=== PATIENT | female | born 1990 | race Caucasian/White ===

== ENCOUNTER → 2018-08-14 22:39 | Emergency (ER) | payer SELFPAY ==
[~2018-08-14 22:39] MED LIST: Iohexol 300* (CONTRAST) 10 ML SDV IV ONE; Ketorolac INJ* 30 MG/ML 1 ML VIAL IV PUSH ONE; Morphine INJ* 4 MG/ML 1 ML SYRINGE (NEW SYRINGE VERSION) IV ONE; Morphine INJ* 4 MG/ML 1 ML SYRINGE (NEW SYRINGE VERSION) ONE; Morphine VIAL* 10 MG/ML 1 ML VIAL IV ONE; NS 0.9% 1000 ML* 1,000 ML IV ONE; Ondansetron INJ* 2 MG/ML VIAL IV ONE
[2018-08-14 23:30] LABS: ABS Basophils 0.1 10^3/ul (0-0.2); ABS Eosinophils 0.1 10^3/ul (0-0.6); ABS Monocytes 0.8 10^3/ul (0-0.8); ABS Neutrophils 4.5 10^3/ul (1.5-7.7); ABS Nucleated RBC 0 10^3/ul; Eosinophil % 1.6 % (0-6); Hematocrit 40 % (35-47); Hemoglobin 14.1 g/dl (12.0-16.0); Mean Corpuscular HGB Conc 35 g/dl (31-36); Mean Corpuscular Hemoglobin 31 pg (27-31); Mean Corpuscular Volume 89 fL (80-97); Mean Platelet Volume 9.1 um3 (7.4-10.4); Nucleated Red Blood Cells % 0.1; Platelet Count 229 10^3/ul (150-450); Red Blood Count 4.54 10^6/ul (4.00-5.40); Red Cell Distribution Width 13 % (10.5-15); White Blood Count 8.5 10^3/ul (3.5-10.8)
[2018-08-14 23:49] LABS: EGFR Non-African American 110.5 (>60)
--- NOTE | 2018-08-14 23:53 | ED ---
Abdominal Pain/Female - HPI Summary HPI Summary: Complains of sudden onset bilateral upper abdominal pain now radiating to lower abdominal pain starting this morning. Abdominal pain described as intermittent , sharp and crampy, progressive over the day, worse after eating, at worst 10/ 10. Also complains of frequent urination, nausea, headache, subjective fever. Denies history of same pain. LMP 2 weeks ago, no control, sexually active. Denies cough, sore throat, CP, SOB, V/D, change in BM, vaginal symptoms. Medical history is Lyme disease. Abdominal/pelvic surgical history is none. - History of Current Complaint Chief Complaint: EDAbdPain Stated Complaint: LOWER ABD PAIN Time Seen by Provider: 08/14/18 23:07 Hx Obtained From: Patient Onset/Duration: Sudden Onset, Lasting Hours Timing: Intermittent Episode Lasting Severity Initially: Moderate Severity Currently: Moderate Pain Intensity: 6 Pain Scale Used: 0-10 Numeric Location: Epigastric, Suprapubic, Umbilical Radiates: No Character: Sharp, Cramping Aggravating Factor(s): Food, Movement Alleviating Factor(s): Position Associated Signs and Symptoms: Positive: Fever, Urinary Symptoms, Decreased Appetite, Nausea Allergies/Adverse Reactions: Allergies Allergy/AdvReac Type Severity Reaction Status Date / Time Sulfa (Sulfonamide Allergy Unknown Verified 08/14/18 22:47 Antibiotics) Reaction Details PMH/Surg Hx/FS Hx/Imm Hx Endocrine/Hematology History: Denies: Hx Anticoagulant Therapy Cardiovascular History: Denies: Hx Cardiac Arrest History: Denies: Hx Dialysis Neurological History: Denies: Hx CVA Infectious Disease History: No Infectious Disease History: Denies: Traveled Outside the [place] in Last 30 Days - Social History Alcohol Use: None Hx Substance Use: No Substance Use Type: Reports: None Hx Tobacco Use: No Smoking Status (MU): Never Smoked Tobacco Review of Systems Positive: Fever, Chills Eyes: Negative ENT: Negative Cardiovascular: Negative Respiratory: Negative Positive: Abdominal Pain, Nausea Positive: frequency Musculoskeletal: Negative Skin: Negative Positive: Headache Psychological: Normal All Other Systems Reviewed And Are Negative: Yes Physical Exam - Summary Physical Exam Summary: Somewhat tender to palpation suprapubically, right lower quadrant, right upper quadrant. Abdominal exam otherwise unremarkable. Triage Information Reviewed: Yes Vital Signs On Initial Exam: Initial Vitals Temp Pulse Resp BP Pulse Ox 98.4 F 63 16 141/98 99 08/14/18 22:44 08/14/18 22:44 08/14/18 22:44 08/14/18 22:44 08/14/18 22:44 Vital Signs Reviewed: Yes Appearance: Positive: Well-Appearing Skin: Positive: Warm Head/Face: Positive: Normal Head/Face Inspection Eyes: Positive: Normal Neck: Positive: Supple Respiratory/Lung Sounds: Positive: Clear to Auscultation Cardiovascular: Positive: Normal Abdomen Description: Positive: Other: Musculoskeletal: Positive: Normal Neurological: Positive: Normal Psychiatric: Positive: Normal AVPU Assessment: Alert - Ru Coma Scale Best Eye Response: 4 - Spontaneous Best Motor Response: 6 - Obeys Commands Best Verbal Response: 5 - Oriented Coma Scale Total: 15 Diagnostics - Vital Signs Vital Signs Temp Pulse Resp BP Pulse Ox 08/14/18 22:44 98.4 F 63 16 141/98 99 - Laboratory Lab Results: Lab Results 08/14/18 Range/Units 23:25 WBC 8.5 (3.5-10.8) 10^3/ul RBC 4.54 (4.00-5.40) 10^6/ul Hgb 14.1 (12.0-16.0) g/dl Hct 40 (35-47) % MCV 89 (80-97) fL MCH 31 (27-31) pg MCHC 35 (31-36) g/dl RDW 13 (10.5-15) % Plt Count 229 (150-450) 10^3/ul MPV 9.1 (7.4-10.4) um3 Neut % (Auto) 53.3 (38-83) % Lymph % (Auto) 35.0 (25-47) % [place] % (Auto) 9.2 H (0-7) % Eos % (Auto) 1.6 (0-6) % Baso % (Auto) 0.9 (0-2) % Absolute Neuts (auto) 4.5 (1.5-7.7) 10^3/ul Absolute Lymphs (auto) 3.0 (1.0-4.8) 10^3/ul Absolute Monos (auto) 0.8 (0-0.8) 10^3/ul Absolute Eos (auto) 0.1 (0-0.6) 10^3/ul Absolute Basos (auto) 0.1 (0-0.2) 10^3/ul Absolute Nucleated RBC 0 10^3/ul Nucleated RBC % 0.1 Result Diagrams: 08/14/18 23:25 08/14/18 23:25 Lab Statement: Any lab studies that have been ordered have been reviewed, and results considered in the medical decision making process. - Ultrasound No standard instances Ultrasound Interpretation: Positive (See Comments) - Mildly dilated common bile duct measuring 7 mm. Hepatomegaly. Contracted gallbladder without definite acute abnormality. Re-Evaluation - Re-Evaluation First Eval Re-Evaluation Time: 04:49 Change: Improved Comment: Pt feels better, will discharge. Abdominal Pain Fem Course/Dx - Course Course Of Treatment: Complains of sudden onset bilateral upper abdominal pain now radiating to lower abdominal pain starting this morning. Abdominal pain described as intermittent, sharp and crampy, progressive over the day, worse after eating, at worst 10/10. Also complains of frequent urination, nausea, headache, subjective fever. Denies history of same pain. LMP 2 weeks ago, no control, sexually active. Denies cough, sore throat, CP, SOB, V/D, change in BM, vaginal symptoms. Medical history is Lyme disease. Abdominal/ pelvic surgical history is none. Physical exam:Somewhat tender to palpation suprapubically, right lower quadrant, right upper quadrant. Abdominal exam otherwise unremarkable. Vital signs within normal limits. Labwork unremarkable. Ultrasound gallbladder non-definitive, no definite evidence of abnormality. Waiting results of CT. Signed out to Dr. Centeno while results pending - Diagnoses Provider Diagnoses: Abdominal pain, Hepatomegaly Discharge - Sign-Out/Discharge Documenting (check all that apply): Sign-Out Patient Signing out patient TO: Mg Centeno - Discharge Plan Condition: Stable Disposition: HOME Patient Education Materials: Abdominal Pain (ED) [facility] [Provider Group] Additional Instructions: Return to the emergency department for any new or worsening symptoms. Follow up with [facility] or your primary care physician regarding your enlarged liver (hepatomegaly) in 1-2 days. - Billing Disposition and Condition Condition: STABLE Disposition: Home
[2018-08-15 00:50] LABS: Urine Appearance Clear; Urine Blood Negative (Negative); Urine Color Straw; Urine Ketones Negative (Negative); Urine Protein Negative (Negative); Urine Urobilinogen Negative (Negative)
--- NOTE | 2018-08-15 01:00 | RAD ---
EXAM: US Abdomen Limited, Right Upper Quadrant EXAM DATE/TIME: 08/15/2018 12:10 AM CLINICAL HISTORY: 27 years old, female; Pain; Abdominal pain; Epigastric; Patient HX: Ruq pain today. Patient ate 3 hrs prior to sono. ; Additional info: Upper ab pain after eating, nausea TECHNIQUE: Real-time ultrasound of the right upper quadrant with image documentation. COMPARISON: No relevant prior studies available. FINDINGS: Liver: Hepatomegaly measuring 18 cm No intrahepatic bile duct dilation. Gallbladder: Negative ultrasonographic Cobb's. Gallbladder is contracted. No definite cholelithiasis or pathologic thickening. Common bile duct: Mildly dilated common bile duct measuring 7 mm. No stones. Pancreas: Visualized portions of the pancreas appear within normal limits. Right kidney: Unremarkable. No stones. No solid mass. No hydronephrosis. IMPRESSION: Contracted gallbladder without definite acute abnormality. Mildly dilated common bile duct measuring 7 mm. Hepatomegaly. To contact [facility] with a general question: [facility] - [phone] For direct physician to physician contact: Physician Hotline - [phone] [facility] ([facility] Facility ID #[id number])
--- NOTE | 2018-08-15 02:25 | ED ---
Progress - Results/Orders Results/Orders: CT A/P: Hepatomegaly. Dr. Centeno has reviewed this report. Re-Evaluation - Re-Evaluation First Eval Re-Evaluation Time: 04:49 Change: Improved Comment: Pt feels better, will discharge. Course/Dx - Course Course Of Treatment: Complains of sudden onset bilateral upper abdominal pain now radiating to lower abdominal pain starting this morning. Abdominal pain described as intermittent, sharp and crampy, progressive over the day, worse after eating, at worst 10/10. Also complains of frequent urination, nausea, headache, subjective fever. Denies history of same pain. LMP 2 weeks ago, no control, sexually active. Denies cough, sore throat, CP, SOB, V/D, change in BM, vaginal symptoms. Medical history is Lyme disease. Abdominal/ pelvic surgical history is none. Physical exam:Somewhat tender to palpation suprapubically, right lower quadrant, right upper quadrant. Abdominal exam otherwise unremarkable. Vital signs within normal limits. Labwork unremarkable. Ultrasound gallbladder non-definitive, no definite evidence of abnormality. Waiting results of CT. Signed out to Dr. Centeno while results pending. A CT A/P reveals hepatomegaly. - Diagnoses Provider Diagnoses: Abdominal pain, Hepatomegaly Discharge - Sign-Out/Discharge Documenting (check all that apply): Patient Departure - discharge, Receiving Sign-Out Receiving patient FROM: Reji Appiah - Discharge Plan Condition: Stable Disposition: HOME Patient Education Materials: Abdominal Pain (ED) Referrals: [facility] [Provider Group] Additional Instructions: Return to the emergency department for any new or worsening symptoms. Follow up with [facility] or your primary care physician regarding your enlarged liver (hepatomegaly) in 1-2 days. - Attestation Statements Document Initiated by Scribe: Yes Documenting Scribe: Clay Valiente Provider For Whom Scribe is Documenting (Include Credential): Dr. Mg Centeno MD Scribe Attestation: Clay Mcgrath, scribed for Dr. Mg Centeno MD on 08/15/18 at 0449.
--- NOTE | 2018-08-15 04:32 | RAD ---
EXAM: CT Abdomen and Pelvis With Intravenous Contrast CLINICAL HISTORY: 27 years old, female; Pain; Abdominal pain; Acute; Additional info: Progressive severe abdo pain TECHNIQUE: Axial computed tomography images of the abdomen and pelvis with intravenous contrast. All CT scans at this facility use at least one of these dose optimization techniques: automated exposure control; mA and/or kV adjustment per patient size (includes targeted exams where dose is matched to clinical indication); or iterative reconstruction. Coronal and sagittal reformatted images were created and reviewed. CONTRAST: 88 mL of OMNI 300 administered intravenously. COMPARISON: GB US GALL BLADDER 08/14/2018 11:48 PM FINDINGS: Lung bases: Unremarkable. No mass. No consolidation. ABDOMEN: Liver: The liver is enlarged with a craniocaudal measurement of 21 cm. Gallbladder and bile ducts: Unremarkable. No calcified stones. No ductal dilation. Pancreas: Unremarkable. No mass. No ductal dilation. Spleen: Unremarkable. No splenomegaly. Adrenals: Unremarkable. No mass. Kidneys and ureters: Unremarkable. No solid mass. No hydronephrosis. Stomach and bowel: Unremarkable. No obstruction. No mucosal thickening. PELVIS: Appendix: No findings to suggest acute appendicitis. Bladder: Unremarkable. No mass. Reproductive: There is a peripherally enhancing nodule in the left adnexa measuring 1.7 cm, probably corpus luteum. ABDOMEN and PELVIS: Intraperitoneal space: Unremarkable. No free air. No significant fluid collection. Bones/joints: No acute fracture. No dislocation. Soft tissues: Unremarkable. Vasculature: Unremarkable. No abdominal aortic aneurysm. Lymph nodes: Unremarkable. No enlarged lymph nodes. IMPRESSION: Hepatomegaly. To contact [facility] with a general question: [facility] - [phone] For direct physician to physician contact: Physician Hotline - [phone] [facility] ([facility] Facility ID #[id number])
[2018-08-15 05:08] VITALS: BP 101/63
== END | disposition home or self-care (01) ==
LOC: ED 22:39
DX: R10.10 Upper abdominal pain, unspecified (principal); R16.0 Hepatomegaly, not elsewhere classified; R50.9 Fever, unspecified; R11.0 Nausea; R51 Headache
CPT/HCPCS: 36415; 74177; 76705; 80053; 81003; 83690; 84702; 85025; 86140; 99282; J1885; J2270; J2405; Q9967

== ENCOUNTER 2018-08-31 18:20 | Emergency (ER) | payer SELFPAY ==
[2018-08-31 20:10] LABS: ABS Basophils 0.1 10^3/ul (0-0.2); ABS Eosinophils 0.1 10^3/ul (0-0.6); ABS Lymphocytes 2.7 10^3/ul (1.0-4.8); ABS Monocytes 0.6 10^3/ul (0-0.8); ABS Neutrophils 3.5 10^3/ul (1.5-7.7); ABS Nucleated RBC 0 10^3/ul; Eosinophil % 1.3 % (0-6); Hematocrit 41 % (35-47); Lymphocyte % 38.9 % (25-47); Mean Corpuscular HGB Conc 35 g/dl (31-36); Mean Corpuscular Hemoglobin 31 pg (27-31); Mean Corpuscular Volume 90 fL (80-97); Mean Platelet Volume 8.6 um3 (7.4-10.4); Nucleated Red Blood Cells % 0.1; Platelet Count 260 10^3/ul (150-450); Red Blood Count 4.54 10^6/ul (4.00-5.40); Red Cell Distribution Width 13 % (10.5-15); White Blood Count 6.9 10^3/ul (3.5-10.8)
[2018-08-31 20:28] LABS: EGFR Non-African American 99.6 (>60)
[2018-08-31] MEDS ORDERED: Magnesium Sulfate 2 GM IV* 2 GM/50 ML BAG IVPB ONE (20:57)
--- NOTE | 2018-08-31 21:39 | RAD ---
EXAM: MR Head Without Intravenous Contrast CLINICAL HISTORY: 27 years old, female; Signs and symptoms; Numbness / parasthesia; Left; Patient HX: Pt complaining of left arm numbness since midnight last night; Additional info: Left sided numbness TECHNIQUE: Magnetic resonance images of the head/brain without intravenous contrast in multiple planes. COMPARISON: No relevant prior studies available. FINDINGS: Brain: No intracranial hemorrhage or extra-axial fluid collection. No evidence of mass effect or midline shift. No white matter abnormalities. No restricted diffusion to suggest acute infarct. Ventricles: Ventricles, cisterns, and sulci are normal. Bones/joints: Unremarkable. Sinuses: Unremarkable as visualized. No acute sinusitis. Mastoid air cells: Unremarkable as visualized. No mastoid effusion. Orbits: Unremarkable as visualized. IMPRESSION: No acute findings on MR Brain. To contact [facility] with a general question: [facility] - [phone] For direct physician to physician contact: Physician Hotline - [phone] [facility] ([facility] Facility ID #[id number])
[2018-08-31] MEDS ORDERED: Ketorolac INJ* 30 MG/ML 1 ML VIAL IV PUSH ONE (21:57)
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
[2018-08-31 22:53] VITALS: BP 128/79
== END 2018-08-31 22:55 | disposition home or self-care (01) ==
LOC: ED 18:20
DX: R20.0 Anesthesia of skin (principal); R51 Headache; A69.20 Lyme disease, unspecified
CPT/HCPCS: 36415; 70551; 80053; 83735; 84484; 84702; 85025; 86141; 93005; 96374; 96375; 99284; J1885; J3475

== ENCOUNTER 2019-09-18 11:06 | Emergency (ER) | payer SELFPAY ==
[2019-09-18 11:54] VITALS: BP 129/93
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
[2019-09-18] MEDS ORDERED: hydrOXYzine HCL TAB* 25 MG PO ONE (12:20)
== END 2019-09-18 14:00 | disposition home or self-care (01) ==
LOC: UCEAST 11:06
DX: S09.90XA Unspecified injury of head, initial encounter (principal); F41.9 Anxiety disorder, unspecified; Z88.2 Allergy status to sulfonamides; V49.9XXA Car occupant (driver) (passenger) injured in unspecified traffic accident, initial encounter; Y92.9 Unspecified place or not applicable
CPT/HCPCS: 70450; 72125; 81003; 84702; 99212; A9270-GY; G0463